=== PATIENT | female | born 1955 | race Two or more races ===

== ENCOUNTER 2025-01-07 06:00 | Day surgery (SDC) | payer OTHER ==
[2025-01-01 10:14] LABS: BASO % 0.5 % (0.1-1.2); EOS # 0.13 (0.04-0.54); EOS % 2.2 % (0.7-7.0); LYMPH # 1.09 (1.18-3.74); LYMPH % 18.3 % (19.3-53.1); MEAN PLATELET VOLUME 10.40 fl (9.4-12.4); MONO # 0.36 (0.24-0.82); MONO % 6.0 % (4.7-12.5); NEUT # 4.35 (1.56-6.13); NEUT % 72.8 % (34.0-71.1); RED CELL DISTRIBUTION WIDTH 13.2 % (11.6-14.4)
[2025-01-01 10:37] LABS: INR < 0.93
[2025-01-01 10:44] LABS: URINE APPEARANCE Clear; URINE BILIRRUBIN Negative (NEGATIVE); URINE BLOOD Trace; URINE COLOR Yellow; URINE GLUCOSE Negative (NEGATIVE); URINE KETONE Negative (NEGATIVE); URINE LEUKOCYTE Negative; URINE NITRATE Negative; URINE PROTEIN Trace (NEGATIVE); URINE UROBILINOGEN 0.2 E.U./dl
[2025-01-01 10:48] LABS: URINE BACTERIA 521.9 uL (0.0-1933); URINE CAST 1.46 uL (0.0-1.40); URINE EPITHELIAL CELLS 34.7 uL (0.0-38.8); URINE RBC 18.0 uL (0.0-20.8); URINE WBC 10.4 uL (0.0-23.2)
[2025-01-01 11:15] LABS: URINE CRYSTALS FEW /HPF; URINE MUCUS MODERATE
[2025-01-01 11:20] LABS: ALT/SGPT 18.0 U/L (12-78); AST/SGOT 11.0 U/L (15-37); BILIRUBIN TOTAL 0.55 mg/dL (0.3-1.2); BUN CREA RATIO 14.0 (7.0-25.0); CREATININE SERUM 0.71 mg/dL (0.55-1.02); GFR 81.15; GLOBULINA 3.4 G/DL (2.4-3.5); GLUCOSE FASTING 99.0 mg/dL (65-100); OSMOLALITY SERUM 286.0 MOSM/KG (275-295)
[2025-01-01 14:40] VITALS: BP 131/84
[~2025-01-07] VITALS: Ht 160 cm; Wt 73.9 kg
[~2025-01-07 06:00] MED LIST: COZAAR25 MG PO; LEVOTHYROXINE25 MCG
[2025-01-07] MEDS ORDERED: POVIDONE-IODINE 118 ML BOTT TOP ONE ×4 (07:30→16:15)
[2025-01-07] MEDS ORDERED: CHLORHEXIDINE GLUCONATE 120 ML BOTTLE TOP ONE ×2 (07:30→16:39)
[2025-01-07] MEDS ORDERED: RINGERS SOLUTION,LACTATED 1,000 ML IV SCH (18:30)
== END 2025-01-07 19:15 | disposition home or self-care (01) ==
LOC: CIR.AMB 06:00
PROVIDERS: ATTEND Obstetrics & Gynecology Gynecology
DX: N85.00 Endometrial hyperplasia, unspecified (principal)